=== PATIENT | female | born 1940 | race Caucasian/White ===

== ENCOUNTER → 2017-10-19 | Outpatient (CLI) | payer OTHER, BC ==
[~2017-10-19] MED LIST: ADVIL100 M2 PO; CALCIUM PO; FISH OIL 1,001000 M2 PO; FISHOIL PO; IBUPROFEN 200200 M1; MULTIVITAMINS PO; NEURONTIN 300300 M1 PO; NORCO 5-325 TA1 EACH PO; ONDANSETRON HCL4 M2 PO; OPTIVE EYE DROP30 ML OP; RELAFEN750 MG PO; ZOFRAN4 MG PO; ZYMAR5 ML OP
== END ==
LOC: MRI 06:36
DX: M47.892 Other spondylosis, cervical region (principal); M54.12 Radiculopathy, cervical region; M40.40 Postural lordosis, site unspecified; M46.02 Spinal enthesopathy, cervical region